=== PATIENT | male | born 1955 | race Caucasian/White ===

== ENCOUNTER 2023-11-25 09:51 | Emergency (ER) | payer OTHER, MEDICARE, SELFPAY ==
--- NOTE | ~2023-11-25 | XR_ITS ---
EXAMINATION: XR ribs RT 2V w CXR 2V DATE: 11/25/2023 11:06 INDICATION: Right chest pain. Cough. TECHNIQUE: Frontal and lateral views of the chest and 2 views on 3 radiographs of the right ribs were obtained. COMPARISON: None. FINDINGS: CHEST TWO VIEWS: A calcified right lung nodule is consistent with old granulomatous disease. No pleur al effusion or pneumothorax. The heart size is normal. There is a right shoulder arthroplasty. RIGHT RIBS: There is no rib fracture. IMPRESSION: 1. No rib fracture. Reviewed, dictated and finalized at location E. TESTER IMPRESSION: 1. No rib fracture.
[2023-11-25 10:13] VITALS: BP 112/63; PULSE 65; RESP 16; TEMP 36.9; O2SAT 95
[2023-11-25 10:14] VITALS: BP 112/63; PULSE 65; RESP 16; TEMP 36.9; O2SAT 95
--- NOTE | 2023-11-25 10:32 | ED.URI ---
HPI - URI/Sore Throat General Chief Complaint: Upper Respiratory Infection Stated Complaint: Cough, Chest Pain Time Seen by Provider: 11/25/23 10:25 Source: patient Mode of arrival: ambulatory Limitations: no limitations History of Present Illness HPI Narrative: Hany is a 67-year-old male patient presenting to the clinic today with complaints of cough x 1weeks and some right-sided chest discomfort. He reports he is bringing up some phlegm. States he does have some mild shortness of breath. MD elicited complaint: sore throat and nasal congestion Related Data Home Medications Medication Instructions Recorded Confirmed atorvastatin 20 mg tablet mg 11/25/23 gabapentin 300 mg capsule mg 11/25/23 losartan 100 tablet 11/25/23 mg-hydrochlorothiazide 25 mg tablet metoprolol tartrate 25 mg tablet mg 11/25/23 omeprazole 20 mg capsule,delayed mg 11/25/23 release Allergies Allergy/AdvReac Type Severity Reaction Status Date / Time No Known Allergies Allergy Verified 11/04/17 16:52 Review of Systems Review of Systems: Pertinent positives per HPI. Patient denies any fever, chills, rash, headache, visual changes, dizziness, palpitations, nausea, vomiting, diarrhea, constipation, abdominal pain, or any urinary issues. PMFSH Comments At the time of my signature, I reviewed and agree with the nursing past medical, surgical, social, and family history. There is no relevant family history pertinent to the patient complaint. Exam Narrative: General: Well-developed, well nourished, in no apparent distress Head: Normocephalic, atraumatic Eyes: Pupils equally round and reactive to light bilaterally, EOM intact, sclera and conjunctive clear, no discharge, lids normal Ears: TMs intact and clear, ear canals clear, no drainage, grossly hearing normal. Nose: Nares patent, clear nasal discharge, no inflammation, no sinus tenderness. Mouth: Oral pharynx without lesions or masses, good dentition, MMM. Neck: Supple, trachea midline, no enlargement of anterior or posterior cervical nodes, no thyroid masses or goiter palpable. Chest wall: Even rise and fall of the chest wall, no swelling or bruising noted, tenderness to palpation over the right anterior lower rib Cardio: Regular rate and rhythm, s1 and s2 normal, no murmur appreciated. Resp: Clear to auscultation bilaterally, no rhonchi, rales, wheezing or rubs Course Course Emergency Course: Portions of this record may have been created with voice recognition software. Level of Care: Express Care Visit Vital Signs Vital signs: Vital Signs Temperature 36.9 C 11/25/23 10:13 Pulse Rate 65 11/25/23 10:13 Respiratory Rate 16 11/25/23 10:13 Blood Pressure 112/63 11/25/23 10:13 Pulse Oximetry 95 11/25/23 10:13 Temperature 36.9 C 11/25/23 10:14 Pulse Rate 65 11/25/23 10:14 Respiratory Rate 16 11/25/23 10:14 Blood Pressure 112/63 11/25/23 10:14 Pulse Oximetry 95 11/25/23 10:14 Vital signs reviewed MDM - URI/Sore Throat MDM Narrative Medical decision making narrative: At the time of visit patient is resting comfortably on the exam table. Patient appears to be nontoxic. Chest x-ray with right unilateral ribs was performed and shows no sign of rib fracture or pneumonia. Prescription for prednisone, azithromycin, albuterol inhaler, and Tessalon Perles was sent to the pharmacy. Supportive measures were discussed with the patient and they voiced understanding discharge instructions and agrees to treatment plan. Return precautions reviewed Differential Diagnosis Differential diagnosis: Likely upper respiratory infection, otitis media, sinusitis, viral infection, bronchitis, influenza, pharyngitis and other (COVID) Imaging Data Radiologist's impression: ITS Impressions Ribs w/Chest X-Ray 11/25/23 11:22 IMPRESSION: 1. No rib fracture. Discharge Plan Discharge Clinical Impression: Rib pain on right si
== END 2023-11-25 11:36 | disposition home or self-care (01) ==
PROVIDERS: Emergency Provider Nurse Practitioner Family
DX: J40 Bronchitis, not specified as acute or chronic (principal); R07.81 Pleurodynia; J06.9 Acute upper respiratory infection, unspecified; I10 Essential (primary) hypertension
CPT/HCPCS: 71046; 71100; 99203; G0463